=== PATIENT | female | born 1955 | race Caucasian/White ===

== ENCOUNTER 2024-09-16 09:40 | Outpatient (CLI) | payer MEDICARE, BC | END 2024-09-16 09:41 | disposition home or self-care (01) | LOC: CSHSLEEP 09:40 | PROVIDERS: ATTEND Registered Nurse | DX: G47.33 Obstructive sleep apnea (adult) (pediatric) (principal); R53.83 Other fatigue; R09.89 Other specified symptoms and signs involving the circulatory and respiratory systems; E66.3 Overweight; Z68.28 Body mass index [BMI] 28.0-28.9, adult; R06.83 Snoring; G47.00 Insomnia, unspecified; I63.9 Cerebral infarction, unspecified; I10 Essential (primary) hypertension; G47.61 Periodic limb movement disorder | CPT/HCPCS: 95811 ==